=== PATIENT | female | born 1980 | race Asian ===

== ENCOUNTER 2023-03-22 13:55 | Outpatient (CLI) | payer OTHER | END 2023-03-22 18:36 | disposition home or self-care (01) | LOC: SMA 13:55 | DX: Z12.31 Encounter for screening mammogram for malignant neoplasm of breast (principal) | CPT/HCPCS: 77067 ==

== ENCOUNTER 2023-07-26 13:14 | Outpatient (CLI) | payer OTHER | END 2023-07-26 18:15 | disposition home or self-care (01) | LOC: SUS 13:14 | DX: R92.0 Mammographic microcalcification found on diagnostic imaging of breast (principal) | CPT/HCPCS: 76641 ==